=== PATIENT | male | born 1995 | race Caucasian/White ===

== ENCOUNTER 2018-05-30 10:18 | Inpatient (IN) | payer OTHER ==
[~2018-05-30] VITALS: Ht 180.3 cm; Wt 72.1 kg
[2018-05-30 10:42] VITALS: Ht 180.3 cm; Wt 72.1 kg
[2018-05-30 11:05] LABS: CARBON DIOXIDE 23.8 mmol/L (21-32); CHLORIDE SERUM 103 mmol/L (98-107); CREATININE SERUM 1.4 mg/dL (0.7-1.3); GFR1 > 60 mL/min; GLUCOSE SERUM 93 mg/dL (74-106); POTASSIUM SERUM 3.2 mmol/L (3.5-5.1); SODIUM SERUM 138 mmol/L (136-145)
[2018-05-30 11:10] LABS: ALKALINE PHOSPHATASE 80 U/L (46-116); ALT/SGPT 13 U/L (16-63); AST/SGOT 6 U/L (15-37); BILIRUBIN TOTAL 0.1 mg/dL (0.20-1.00); LACTIC DEHYDROGENASE (LDH) 123 U/L (100-190); TOTAL PROTEIN, SERUM 8.2 g/dL (6.4-8.2)
[2018-05-30 11:13] LABS: ALBUMIN 3.1 g/dL (3.4-5.0)
[2018-05-30 11:14] LABS: IRON 22 ug/dL (65-170); TOTAL IRON BINDING CAPACITY 185 ug/dL (250-450)
[2018-05-30 11:24] LABS: BASOPHIL % 0.5 % (0-2); RED BLOOD CELLS 2.52 M/mm3 (4.52-5.90); RED CELL DISTRIBUTION WIDTH 14.5 % (11.5-14.5)
--- NOTE | 2018-05-30 11:31 | NUR ---
PT BROUGHT TO ED VIA AMBULANCE TRANSPORT FROM [facility] FOR ABNORMAL LABS. PER REPORT PT HAS HGB 6.9/HCT 23 READING FROM BLOOD DRAW DONE YESTERDAY AND HAS HAS RECENT HX OF MDR UTI. 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 PT REPORTS INTERMITTENT DIZZINESS X3 DAYS AND "NOT FEELING RIGHT." PT ARRIVED TO ED AA/O X4, REPORTS CHRONIC NECK PAIN D/T INJURY, NO NEW PAIN, RESPS EVEN AND UNLABORED, CAPPED OFF TRACH IN PLACE, PER PT WAS GOING TO BE REMOVED "BUT I GOT SICK AND MY SATS WERE GOING DOWN SO THEY KEPT IT JUST IN CASE," SKIN PALE, WARM/DRY, INTACT, ABLE TO MOVE BILATERAL ARMS, NO ACUTE DISTRESS NOTED. 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
--- NOTE | 2018-05-30 11:35 | NUR ---
PT ALSO REPORTS INTERMITTENT FEVER X1 WEEK.
--- NOTE | 2018-05-30 11:53 | NUR ---
PT REPORTS HE DOES NOT WAS BLOOD TRANSUSION UNLESS BLOOD IS FROM A FAMILY MEMBER D/T HIS PERSONAL PREFERENCE.
[2018-05-30 12:42] LABS: PLATELET COUNT 577 x10^3mcL (130-400)
--- NOTE | 2018-05-30 12:52 | NUR ---
PT SITTING UP IN ED GURNEY IN POSITION OF COMFORT, A/O X4, ON CELL PHONE, RESPS EVEN AND UNLABORED, SKIN WARM/DRY TO TOUCH, NO DISTRESS NOTED.
[2018-05-30 12:53] LABS: UA SPECIFIC GRAVITY <=1.005 (1.005-1.035); microscopic required? YES; urine erythrocyte TRACE (NEGATIVE)
--- NOTE | 2018-05-30 13:05 | NUR ---
AT BEDSIDE DISCUSSING PLAN OF CARE.
[2018-05-30] MEDS ORDERED: VITAMIN C500 MG/5 M GT (14:23)
[2018-05-30] MEDS ORDERED: PHEL GT (14:23)
[2018-05-30] MEDS ORDERED: MELATONIN5 MG/15 ML GT (14:24)
[2018-05-30] MEDS ORDERED: LOV40I SQ (14:24)
[2018-05-30] MEDS ORDERED: FLOMAX0.4 MG PO (14:25)
[2018-05-30] MEDS ORDERED: PEPCID20 MG GT (14:25)
[2018-05-30] MEDS ORDERED: ROBAXIN500 MG GT (14:25)
[2018-05-30] MEDS ORDERED: NOR10T GT (14:26)
[2018-05-30] MEDS ORDERED: [UNRECOGNIZED DRUG - OTHER] PO (14:27)
[2018-05-30] MEDS ORDERED: MIRALAX17 GM GT (14:27)
[2018-05-30] MEDS ORDERED: MOT600 GT (14:27)
[2018-05-30] MEDS ORDERED: GABAPENTIN600 M1 PO (14:28)
[2018-05-30] MEDS ORDERED: CRANBERRY450 M2 PO (14:28)
[2018-05-30] MEDS ORDERED: MIDODRINE HCL2.5 M1 PO (14:29)
[2018-05-30] MEDS ORDERED: XANAX0.25 MG PO (14:30)
[2018-05-30] MEDS ORDERED: ACIDOPHILUS1 EAC1 GT (14:31)
[2018-05-30] MEDS ORDERED: ZOFRAN ODT4 MG SL (14:31)
[2018-05-30] MEDS ORDERED: [UNRECOGNIZED DRUG - OTHER] GT (14:32)
[2018-05-30] MEDS ORDERED: HYDROCORTIZONE (14:33)
[2018-05-30] MEDS ORDERED: BENADRYL ALLERG25 M1 PO (14:33)
[2018-05-30] MEDS ORDERED: MULTI-VITAMINS1 TAB PO (14:33)
[2018-05-30] MEDS ORDERED: DOCUSATE SODIUM PO (14:34)
[2018-05-30] MEDS ORDERED: TYLENOL325 M1 PO (14:37)
[2018-05-30] MEDS ORDERED: BACTRIM DS1 TAB PO (14:38)
[2018-05-30] MEDS ORDERED: XANAX0.5 MG PO (14:39)
[2018-05-30] MEDS ORDERED: MIN2 PO (14:40)
[2018-05-30] MEDS ORDERED: FERROUS SULFAT325 M2 PO (14:40)
[2018-05-30] MEDS ORDERED: ROBL (14:41)
[2018-05-30] MEDS ORDERED: PROA PO (14:43)
--- NOTE | 2018-05-30 14:49 | NUR ---
MED REC COMPLETED USING PAPERS SENT FROM [facility].
--- NOTE | 2018-05-30 14:49 | NUR ---
REPORT CALLED TO DILSHAD ALTAMIRANO. PT TO BE ADMITTED TO TO B. PT IN NO DISTRESS.
--- NOTE | 2018-05-30 15:15 | NUR ---
RECEIVED PATIENT A/A/OX4; PARAPLEGIC; ABLE TO MOVE BUE; BUT WEAKNESS. BREATHING SOUND DIMINISHED VIGNESH W/ RHONCHI. O2 SAT 97% ON 2L VIA N/C. DENIED CHEST PAIN. NO TELE; P = 99. TRACHEOSTOMY CAPPED. URINE INTACT. URINE INCONT. IVF OF NS 70CC/HR INFUSING WELL TO RAC. TRACHE SUCTION PRN; MOD WHITE SPUTUM BY SUCTION NOTED. ON AIR MATTRESS. SKIN INTACT. NO S/S OF PAIN NOTED. CALL LIGHT IN REACH. PATIENT PALE. STATED HAD BLACK STOOL BM IN SNF. ANXIETY AT TIMES. BUT CLAM AND CO-OP NOW. CONTACT ISOLATION FOR MDRO (+) URINE CULTURE. CALL LIGHT IN REACH
[2018-05-30 15:40] VITALS: BP 127/85
[2018-05-30 15:59] VITALS: BP 111/57
--- NOTE | 2018-05-30 18:38 | NUR ---
C/O ANXIETY. ORDER OF XANAX 1MG PO GIVEN. CONTINUE MONITOR
--- NOTE | 2018-05-30 18:58 | NUR ---
C/O BRETHING DIFFICULTY. O2 SAT 87% ON 2L VIA N/C. RT PAGED FOR TRACHE SUCTION. V/S = [id number]/85; BREATHING IMPROVED AFTER SUCTION.
--- NOTE | 2018-05-30 19:57 | NUR ---
PT ALERT AND ORIENTED. APPEAR TO BE CALM AT THE MOST. BREATHING EVEN AND WITHOUT DIFFICULTY. LUNGS ARE CLEAR AND DIMINISED. TRACH IN PLACE WITHOUT, CLEAN, PRESENTLY WITHOUT SECRETIONS. PT EDUCATED TO CALLED RN IMMEDIATELY IF ANY RESPIRATORY DISTESS OR NEED ANY SUCTIONING. BOTH RT AND LT AV IV INTACH. NS INFUSION @ 70 CC/HR. PT HAS WEAKNESS IN UPPER BILATERAL ARMS AND VIGNESH. LEGS ARE FLACCID. PT STATES THAT HE HAS NOT HAD BLACK STOOLS TODAY. BED IN LOW POSITION. CALL LIGHT IN REACH WILL CONT TO MONITOR.
[2018-05-30 21:22] VITALS: BP 121/75
--- NOTE | 2018-05-30 23:14 | NUR ---
PT C/O OF 8/10 NECK PAIN. NORCO GIVEN PRN.
[2018-05-31 05:54] VITALS: BP 120/77
--- NOTE | 2018-05-31 05:57 | NUR ---
PT ALERT AND ORIENTED. NO SHORTNESS OF BREATH. STATES THAT HE WAS ABLE TO SLEEP FOR A FEW HOURS OVER NIGHT. PT REFUSED TO TURN AND PT UNDERSTANDS THAT TURNING IS TO PREVENT BED SORES. TRACH IS CAPPED AND WITH OUT ANY COMPLICATIONS OVER. BREATHING IS REGULAR WITH OUT AND DIFFICULTY. NO SIGNIFICANT CHANGES OVER NIGHT. WILL ENDORSE TO DAY RN.
[2018-05-31 06:29] LABS: BASOPHIL % 0.5 % (0-2); RED CELL DISTRIBUTION WIDTH 14.5 % (11.5-14.5)
[2018-05-31 06:52] LABS: CALCIUM 9.3 mg/dL (8.5-10.1); CARBON DIOXIDE 24.2 mmol/L (21-32); CHLORIDE SERUM 110 mmol/L (98-107); CREATININE SERUM 1.2 mg/dL (0.7-1.3); GFR1 > 60 mL/min; GLUCOSE SERUM 100 mg/dL (74-106); MAGNESIUM 1.7 mg/dL (1.8-2.4); POTASSIUM SERUM 3.5 mmol/L (3.5-5.1); SODIUM SERUM 145 mmol/L (136-145)
--- NOTE | 2018-05-31 07:10 | NUR ---
SEEN IN BED ASLEEP, BREATHING E/U ON ROOM AIR, TRACH NOTED CAPPED. ON AIR MATTRESS. IVF NS AT 70ML/HR INFUSING WELL TO RAC IV SITE. MOTHER AT BEDSIDE. CONTACT ISOLATION CONTINUED.
[2018-05-31 07:17] LABS: PLATELET COUNT 499 x10^3mcL (130-400)
[2018-05-31 08:10] VITALS: BP 119/80
--- NOTE | 2018-05-31 08:30 | NUR ---
AAOX4. BREATHING EASY ON ROOM AIR. TRACH NOTED CAPPED, DRY NO SECRETIONS. ABLE TO MOVE HIS ARMS UP ABOVE SHOUDER, WIGGLE SOME OF HIS FINGERS. BREAKFAST FED BY HIS MOTHER AT BEDSIDE, NO ASPIRATION NOTED. INCONTINENCE URINE. PATIENT ABLE TO WIGGLE SOME OF HIS LEFT TOES, NO MOVEMENT TO RLE. ON AIR MATRESS. IVF NS TO RAC AT 70ML/HR INFUSING WELL. CONTACT ISOLATION MAINTAINED.
--- NOTE | 2018-05-31 09:51 | NUR ---
NORCO 1 TAB PO GIVEN FOR NECK PAIN, WILL CONTINUE TO MONITOR.
--- NOTE | 2018-05-31 11:04 | NUR ---
NOTED NEW ORDER FOR PRBC TRANSFUSION. PATIENT AND HIS MOTHER AT BEDSIDE STATED THAT THEY WOULD LIKE TO SPEAK TO DOCTOR, PATIENT STATED HE PREFER TO RECEIVED BLODD TRANFUSION ONLY FROM HIS FAMILY MEMBERS. COUNTY SURVEYOR-DESIRE INFORMED.
--- NOTE | 2018-05-31 12:15 | NUR ---
INCONTINENCE URINE NOTED SOAKED URINE TO ABSORBANT PADS. PERICARE PROVIDED. NEW PADS/LINENS CHANGED. REPOSITION. NOTED SOME SPASM TO BLE. REFUSED SCD. ON HEPARIN SQ PROPHYLAXIS. AIR MATTRESS. CONTACT ISOLATION MAINTAINED.
--- NOTE | 2018-05-31 12:30 | NUR ---
LILLY AT BEDSIDE DISCUSSED WITH PATIENT AND HIS MOTHER REGUARDING BLOOD TRANSFUSION AND PLAN OF CARE.
--- NOTE | 2018-05-31 13:30 | NUR ---
STILL REFUSED BLOOD TRANSFUSION AFTER DISCUSSED WITH LILLY. CONSENT OF REFUSAL OF BLOOD TRANSFUSION SIGNED BY PATIENT'S MOTHER (PATIENT IS DISABLED, UABLE TO SIGN).
--- NOTE | 2018-05-31 13:31 | NUR ---
SCHEDULED MEDS GIVEN. NOTED FINISHED 50% OF BURGER. DENIES NAUSEA.
[2018-05-31 15:57] VITALS: BP 134/84
--- NOTE | 2018-05-31 16:35 | NUR ---
RESTING WITH EYES CLOSED. B12 IM GIVEN TO RT UPPER ARM. DUE LEVAQUIN IVPB INFUSING, IV INTACT AND PATENT. MOTHER AT BEDSIDE.
--- NOTE | 2018-05-31 18:04 | NUR ---
NO ANY DISTRESS THROUGHOUT SHIFT. NORCO GIVEN X1, ROBAXIN X1 FOR NECK PAIN WITH GOOD RELIEF. PLEASANT. ALL SCHEDULED MEDS GIVEN. NO SKIN BREAKDOWN, PERIANAL AREA CLEANED, REPOSITIONED. MOTHER AT BEDSIDE AT ALL TIME, VERY SUPPORTIVE. IVF NS AT 50ML/HR INFUSING WELL.
[2018-05-31 20:08] VITALS: BP 128/78
--- NOTE | 2018-05-31 20:30 | NUR ---
PATIENT RECEIVED IN BED IN SITTING POSITION DURING BEDSIDE HANDS OFF AWAKE,ALERT AND ORIENTED. NO RESP. DISTRESS, ON TRACH COLLAR WITH RED BOTTOM, MAMIE #[id number], TRACH CAPPED.PATIENT INFORMED TO CALL NURSE IF SUCTIONING IS NEEDED. NON TELE, HR=78BPM. PATIENT CAN COMMUNICATE NEEDS. DENIED PAIN THIS TIME. PATIENT AND MOTHER INFORMED ABOUT POC THIS SHIFT.SAFETY/FALL PRECAUTIONS MAINTAINED. WILL CONTINUE TO MONITOR.
--- NOTE | 2018-05-31 20:36 | NUR ---
DR. IVY AT BEDSIDE TO ASSESS Pt. Pt IS TRACHED WITH A SHILEY 8.0 CUFFLESS AND CAPPED. NO RESP DISTRESS NOTED ON RA. Pt STATES HE IS ABLE TO EXPECTORATE ON HIS OWN. NOTIFIED TO CALL RT IF SUCTION IS NEEDED OR SOB IS PRESENT. PLAN IS TO DOWNSIZE TRACH TO A SHILEY 7.0 CUFFLESS AND KEEP IT CAPPED; PER DR. IVY. WILL CONTINUE TO MONITOR.
--- NOTE | 2018-05-31 21:23 | NUR ---
SCHEDULED MEDS ADMINISTERED ORALLY, PATIENT INFORMED ABOUT EACH MEDS ACTIONS AND PURPOSE PRIOR. PLACED IN A SITTING /UPRIGHT POSITION. TOOK PILSS WELL, NO DIFF SWALLOWING NOTED. PATIENT ALSO COMPLAINED OF GENERALIZED BODY PAIN RATED AT 6/10 MEDICATED PRN, MADE COMFORTABLE IN BED. REQUESTED FOR HIS SLEEPING MED, TRAZADONE GIVEN. PATIENT IS ALSO INCONTINENT OF UA THIS TIME, DIAPER SOAKED, CLEANED AND KEPT DRY. WILL CONTINUE TO MONITOR. EFFECTIVENESS OF MEDS.
--- NOTE | 2018-05-31 22:06 | NUR ---
CHECKED EFFECTIVENESS OF PAIN MEDS GIVEN, PATIENT STATED PAIN IS CONSTANTLY THERE BUT IS LESS. PATIENT IS COMFORTABLE.
--- NOTE | 2018-05-31 22:46 | NUR ---
PATIENT INCONTINENT OF URINE, CLEANED AND KEPT DRY. NO DISTRESS THIS TIME. WILL CONTINUE TO MONITOR.
--- NOTE | 2018-05-31 23:42 | NUR ---
PATIENT CALLED AND MOTHER CALLED STATING THAT REDNESS IN PATIENT'S FACE IS GETTING WORSE. WENT AND CHECKED PATIENT'S FACE REDNESS NOTED. NOTIFIED DR. BECERRIL OF FINDINGS. WILL COME AND SEE PATIENT. MD SEEN IN PATIENT'S ROOM.
--- NOTE | 2018-06-01 02:51 | NUR ---
PATIENT CHECKED THIS TIME, SLEEPING, EASILY AWAK,CHECKED DIAPER WAS SOAKED, CLEANED AND KEPT DRY. TURNED THIS TIME. NO COMPLAINTS MADE.
[2018-06-01 03:57] VITALS: BP 128/78
--- NOTE | 2018-06-01 05:20 | NUR ---
PATIENT COMPLAINED OF BACK AND NECK PAIN, MEDICATED PRN AND MADE COMFORTABLE IN BED. WILL MONITOR EFFECTIVENESS.
[2018-06-01 05:31] VITALS: BP 127/87
[2018-06-01 06:18] LABS: CALCIUM 9.5 mg/dL (8.5-10.1); CARBON DIOXIDE 26.4 mmol/L (21-32); CHLORIDE SERUM 108 mmol/L (98-107); CREATININE SERUM 1.3 mg/dL (0.7-1.3); GFR1 > 60 mL/min; GLUCOSE SERUM 95 mg/dL (74-106); MAGNESIUM 1.5 mg/dL (1.8-2.4); POTASSIUM SERUM 3.7 mmol/L (3.5-5.1); SODIUM SERUM 145 mmol/L (136-145)
--- NOTE | 2018-06-01 06:26 | NUR ---
PATIENT SLEPT OFF AND ON DURING THE SHIFT, WAS TURNED Q2HRS, INCONTINENT KEPT CLEANED AND DRY. NO RESP. DISTRESS. DENIED PAIN UPON URINATION.COMPLAINED OF PAIN AT IV SITE THIS TIME SITE WAS CHANGED. SAFETY/FALL PRECAUTIONS MAINTAINED. WILL ENDORSE CONTINUITY OF CARE TO INCOMING NURSE.
[2018-06-01 06:28] LABS: BASOPHIL % 0.5 % (0-2)
[2018-06-01 06:31] LABS: PLATELET COUNT 623 x10^3mcL (130-400)
--- NOTE | 2018-06-01 06:34 | NUR ---
LAB CALLED RE-HGB OF 7.0 AND HCT OF 21,PRIMARY RN INFORMED OF LAB RESULT THIS AM
--- NOTE | 2018-06-01 07:24 | NUR ---
BEDSIDE HANDS OFF PERFORMED WITH INCOMING NURSE LOGAN.
--- NOTE | 2018-06-01 07:30 | NUR ---
PT ENDORSE TO ME THIS MORNING. SITTING UP IN BED, AA/O X4 PARAPLEGIC. BREATHING EVEN AND UNLABORED ON RA, LUNGS CLEAR/ DIM AT BASES. TRACH INPLACE/ COMMUNICATES WELL. PT WILL VERBALIZE WHEN HE NEEDS SUCTIONING/ ON RT PROTOCAL. MEDSURG, DENIES ANY CP OR PRESSURE. PULSES PRESENT NO EDEMA NOTED, BED BOUND ON HEP SQ./ AIR MATTRESS. INCONTINENT. BOWEL SOUNDS ACTIVE IN ALL FOUR QUADS. SKIN WARM TO TOUCH AND INTACT. IV TO HE RFA INFUSING AT 70 ML/HR, NO REDNESS OR SWELLING NOTED. CALL LIGHT IN REACH .BED IN LOW POSITION. WILL CONTINUE PLAN OF CARE.
[2018-06-01 10:09] VITALS: BP 140/84
--- NOTE | 2018-06-01 11:15 | NUR ---
PT LAYING IN BED RESTING WITH EYES CLOSE, BREATHING EVEN AND UNLABORED ON RA. NO SIGN OF DISTRESS OR SOB. FAMILY AT BEDSIDE. PT TOLERATED 85% OF BREAKFAST. WILL CONTINUE TO MONITOR.
--- NOTE | 2018-06-01 14:25 | NUR ---
PT C/O OF GEN BACK AND SPINE PAIN 10/23, MEDICATED PER EMAR. FAMILY AT BEDSIDE. WILL CONTINUE PLAN OF CARE.
[2018-06-01 17:21] VITALS: BP 119/76
--- NOTE | 2018-06-01 18:41 | NUR ---
PT ASKING FOR PAIN MED FOR DUE TO PRESSURE AND DISCOMFORT TO UPPER BACK, MEDICATED PER EMAR. MOTHER AT BEDSIDE. WILL CONTINUE PLAN OF CARE.
--- NOTE | 2018-06-01 18:51 | NUR ---
NO ACUTE CHANGES AT THIS TIME. NO ACUTE RESP DISTRESS OR SOB NOTED. REMAINS ON RA/ SATING AT 98% RT PROTOCAL NEEDED FOR SUCTION THROUH TRACH CAPPED # 8. DENIES ANY ANY PAIN OR DISCOMFORT AT THIS TIME, MEDICATED PER EMAR. WILL ENDORSE TO INCOMING RN.
--- NOTE | 2018-06-01 19:47 | NUR ---
COMPLAINED OF FEELING NAUSEOUS AND ANXIOUS, MEDICATED PRN. WILL CHECK EFFECTIVENESS.
[2018-06-01 19:59] VITALS: BP 130/87
--- NOTE | 2018-06-01 20:06 | NUR ---
PATIENT RECEIVED IN BED AWAKE,ALERT AND ORIENTED X4, SPEECH CLEAR, NO RESP. DISTRESS BREATHING EVEN AND UNLABORED BS CLEAR UPPER LOBES AND DIMINISHED BASES, FOUND ON ROOM AIR SAT 97%, SHILEY #8 CAPLESS TRACH WITH COLLAR, PATIENT ABLE TO CALL IF SUCTIONING NEEDED, RT PROTOCOL. NON TELE MED/SURG PATIENT=88BPM. PATIENT INCONTINENT OF UA, CLEANED AND KEPT DRY, POSITIONED TO BACK WITH HOB ELEVATED, PATIENT PREFERS TO BE SUPINE AT THIS TIME, INFORMED ABOUT TURNING REGIMEN TO PREVENT PRESSURE SORES S/S IMMOBILITY D/T PARAPLEGIA. CALL LIGHT ON REACH. DULL BACK AND NECK PAIN THIS TIME AT 3/10, INFORMED ABOUT PAIN MANAGEMENT. INFORMED ABOUT POC THIS SHIFT. SAFETY/FALL PRECAUTION MAINTAINED. WILL CONTINUE TO MONITOR.
[2018-06-01 20:59] VITALS: BP 130/87
--- NOTE | 2018-06-01 21:29 | NUR ---
GAVE PATIENT MEDICATIONS. PROVIDED EDUCATION. PATIENT TOLERATED WELL.
--- NOTE | 2018-06-01 23:33 | NUR ---
CHECKED RESULT OF PAIN MEDS PATIENT CLAIMED PAIN IS SUBSIDING. FEELS COMFORTABLE.
--- NOTE | 2018-06-02 05:24 | NUR ---
COMPLAINED OF NEDCK AND BACK PAIN, RATED AT 7/10 MEDICTED AND MADE COMFORTABLE IN BED. WILL CHECK EFFECTIVENESS.
[2018-06-02 05:32] VITALS: BP 103/57
--- NOTE | 2018-06-02 06:31 | NUR ---
PATIENT SLEPT WELL AND RESTED GOOD DURING THE SHIFT. WAS INCONTINENT X4, CLEANED AND KEPT DRY. NO RESP. DISTRESS, BREATHING EVEN AND UNLABORED, DIDNT REQUIRE SUCTIONING DURING THE SHIFT. IV SITE NO SIGN OF INFILTRATION. WAS MEDICATED X2 FOR COMPLAINT OF NECK AND UPPER BACK PAIN. RECEIVED RELIEF. SAFETY/FALL/ CONTACT ISOLATION PREC OBSERVED AND MAINTAINED. WILL ENDORSE CONTINUITY OF CARE TO INCOMING NURSE.
[2018-06-02 07:08] LABS: CARBON DIOXIDE 24.8 mmol/L (21-32); CHLORIDE SERUM 108 mmol/L (98-107); CREATININE SERUM 1.1 mg/dL (0.7-1.3); GFR1 > 60 mL/min; GLUCOSE SERUM 97 mg/dL (74-106); MAGNESIUM 1.5 mg/dL (1.8-2.4); POTASSIUM SERUM 3.7 mmol/L (3.5-5.1); SODIUM SERUM 143 mmol/L (136-145)
[2018-06-02 07:09] LABS: BASOPHIL % 0.6 % (0-2)
--- NOTE | 2018-06-02 08:00 | NUR ---
A/A/OX4; CLEAR SPEECH. PARAPLEGIC. ABLE TO MOVE, BUT WEAK ON BUE. TRACHE SHILEY 8.[address] BREATHING SOUND CLEAR VIGNESH. O2 SAT 97% ON RA. IVF OF NS 70CC/HR INFUSING WELL TO RFA. IV SITE CLEAN. URINE INCONT. SKIN PALE, WARM AND INTACT. BED BOUND. ON AIR MATTRESS. CONTACT ISOLATION FOR MDRO (+). NO C/O PAIN NOW. MOTHER AT BED SIDE. PT EVAL AND TREATMENT. CALL LIGHT IN REACH.
[2018-06-02 08:30] LABS: RED CELL DISTRIBUTION WIDTH 14.9 % (11.5-14.5)
[2018-06-02 08:31] LABS: PLATELET COUNT 613 x10^3mcL (130-400)
[2018-06-02 09:21] VITALS: BP 108/60
--- NOTE | 2018-06-02 09:55 | NUR ---
JULIO ANTIQUE FURNITURE REPAIRER AWARE OF PATIENT'S MAG LEVEL. NEW ORDER OF MAG RIDER 4GM IV STARTED.
[2018-06-02] MEDS ORDERED: FERROUS SULFAT325 M2 (11:31)
[2018-06-02] MEDS ORDERED: VITB12I IM (11:32)
[2018-06-02 13:03] VITALS: BP 108/60
--- NOTE | 2018-06-02 17:52 | NUR ---
REPORT GIVEN TO VINNY AT [facility]. ALL QUESTIONS ANSWERED. ATTENDING NURSE RUPA MADE AWARE.
[2018-06-02 17:57] VITALS: BP 118/82
--- NOTE | 2018-06-02 18:18 | NUR ---
D/C TO [facility]IA [facility]. IV D/C'D. NORCO 5/325 PO GIVEN 25 MINS AGO. TRACHE INTACT. NECK COLLAR APPLIED BY RT. CONDITION STABLE.
== END 2018-06-02 18:56 | disposition home or self-care (01) | DRG 463 ==
LOC: ED 10:18 → MU 13:39
PROVIDERS: Emergency Medicine; Family Medicine; ADMIT Internal Medicine
DX: N39.0 Urinary tract infection, site not specified (principal); J96.11 Chronic respiratory failure with hypoxia; G82.20 Paraplegia, unspecified; Z93.0 Tracheostomy status; Z93.1 Gastrostomy status; D53.9 Nutritional anemia, unspecified; T14.8XXS Other injury of unspecified body region, sequela; B96.89 Other specified bacterial agents as the cause of diseases classified elsewhere; E87.6 Hypokalemia; E86.0 Dehydration; Z16.24 Resistance to multiple antibiotics; Z79.891 Long term (current) use of opiate analgesic; Z79.1 Long term (current) use of non-steroidal anti-inflammatories (NSAID); Z53.1 Procedure and treatment not carried out because of patient's decision for reasons of belief and group pressure
CPT/HCPCS: 36600; 87804; 97110-GP; 97112-GP; 97530-GP; J0696; J1644; J1956; J3420; J3475; J7030; Q0162

== ENCOUNTER 2018-06-06 15:29 | Inpatient (IN) | payer OTHER ==
[~2018-06-06] VITALS: Ht 182.9 cm; Wt 77.6 kg
[~2018-06-06 15:29] MED LIST: ACIDOPHILUS1 EAC1 GT; BACTRIM DS1 TAB PO; BENADRYL ALLERG25 M1 PO; CRANBERRY450 M2 PO; DOCUSATE SODIUM PO; FERROUS SULFAT325 M2; FERROUS SULFAT325 M2 PO; FLOMAX0.4 MG PO; GABAPENTIN600 M1 PO; HYDROCORTIZONE; LOV40I SQ; MELATONIN5 MG/15 ML GT; MIDODRINE HCL2.5 M1 PO; MIN2 PO; MIRALAX17 GM GT; MOT600 GT; MULTI-VITAMINS1 TAB PO; NOR10T GT; PEPCID20 MG GT; PHEL GT; PROA PO; ROBAXIN500 MG GT; ROBL; TYLENOL325 M1 PO; VITAMIN C500 MG/5 M GT; VITB12I IM; XANAX0.25 MG PO; XANAX0.5 MG PO; ZOFRAN ODT4 MG SL; [UNRECOGNIZED DRUG - OTHER] GT; [UNRECOGNIZED DRUG - OTHER] PO
[2018-06-06 15:34] VITALS: Ht 182.9 cm; Wt 77.6 kg
[2018-06-06 16:40] LABS: BASOPHIL % 0.5 % (0-2)
[2018-06-06 16:48] LABS: CALCIUM 10.3 mg/dL (8.5-10.1); CARBON DIOXIDE 29.4 mmol/L (21-32); CREATININE SERUM 1.6 mg/dL (0.7-1.3); POTASSIUM SERUM 3.8 mmol/L (3.5-5.1)
[2018-06-06 16:51] LABS: PLATELET COUNT 771 x10^3mcL (130-400)
[2018-06-06 16:53] LABS: ALBUMIN 3.8 g/dL (3.4-5.0); BILIRUBIN TOTAL 0.15 mg/dL (0.20-1.00); TOTAL PROTEIN, SERUM 8.5 g/dL (6.4-8.2)
[2018-06-06 17:45] LABS: microscopic required? NO
[2018-06-06 17:55] LABS: urine erythrocyte NEGATIVE (NEGATIVE)
[2018-06-06 20:53] VITALS: BP 107/53
[2018-06-06 23:04] VITALS: BP 127/72
[2018-06-07 00:45] VITALS: BP 127/72
[2018-06-07 05:57] VITALS: BP 99/48
[2018-06-07 06:11] LABS: BASOPHIL % 0.4 % (0-2)
[2018-06-07 06:27] LABS: CALCIUM 9.5 mg/dL (8.5-10.1); CARBON DIOXIDE 26.8 mmol/L (21-32); CHLORIDE SERUM 105 mmol/L (98-107); CREATININE SERUM 1.4 mg/dL (0.7-1.3); GFR1 > 60 mL/min; GLUCOSE SERUM 93 mg/dL (74-106); POTASSIUM SERUM 3.9 mmol/L (3.5-5.1); SODIUM SERUM 140 mmol/L (136-145)
[2018-06-07 06:49] LABS: PLATELET COUNT 620 x10^3mcL (130-400); RED CELL DISTRIBUTION WIDTH 15.8 % (11.5-14.5)
[2018-06-07 08:57] VITALS: BP 99/53
[2018-06-07 17:18] VITALS: BP 99/45
[2018-06-07 20:56] VITALS: BP 120/62
[2018-06-08 05:55] VITALS: BP 102/73
[2018-06-08 06:30] LABS: CALCIUM 9.3 mg/dL (8.5-10.1); CARBON DIOXIDE 25.9 mmol/L (21-32); CHLORIDE SERUM 106 mmol/L (98-107); CREATININE SERUM 1.2 mg/dL (0.7-1.3); GFR1 > 60 mL/min; GLUCOSE SERUM 83 mg/dL (74-106); POTASSIUM SERUM 3.6 mmol/L (3.5-5.1); SODIUM SERUM 142 mmol/L (136-145)
[2018-06-08 06:39] LABS: BASOPHIL % 0.6 % (0-2)
[2018-06-08 06:40] LABS: PLATELET COUNT 540 x10^3mcL (130-400); RED CELL DISTRIBUTION WIDTH 15.8 % (11.5-14.5)
[2018-06-08 09:24] VITALS: BP 114/67
[2018-06-08 17:25] VITALS: BP 118/70
[2018-06-08 20:56] VITALS: BP 113/65
[2018-06-09 05:22] VITALS: BP 101/60
[2018-06-09 09:02] VITALS: BP 121/75
[2018-06-09 21:03] VITALS: BP 106/63
[2018-06-10 05:30] VITALS: BP 96/57
[2018-06-10 08:34] VITALS: BP 109/63
[2018-06-10 16:38] VITALS: BP 104/56
[2018-06-10 19:43] VITALS: BP 120/81
[2018-06-11 05:48] VITALS: BP 134/89
[2018-06-11 16:58] VITALS: BP 117/74
[2018-06-11 20:32] VITALS: BP 132/73
[2018-06-12 05:28] VITALS: BP 114/69
[2018-06-12 06:37] LABS: CALCIUM 10.5 mg/dL (8.5-10.1); CARBON DIOXIDE 27.4 mmol/L (21-32); CREATININE SERUM 2.3 mg/dL (0.7-1.3)
[2018-06-12 06:52] LABS: POTASSIUM SERUM 2.9 mmol/L (3.5-5.1)
[2018-06-12 06:57] LABS: BASOPHIL % 0.4 % (0-2)
[2018-06-12 07:00] LABS: PLATELET COUNT 418 x10^3mcL (130-400); RED CELL DISTRIBUTION WIDTH 14.6 % (11.5-14.5)
[2018-06-12 08:56] VITALS: BP 135/84
[2018-06-12 17:00] VITALS: BP 108/47
[2018-06-12 21:08] VITALS: BP 99/47
[2018-06-13 02:56] VITALS: BP 111/62
[2018-06-13 05:42] VITALS: BP 118/73
[2018-06-13 06:50] LABS: BASOPHIL % 0.5 % (0-2); RED CELL DISTRIBUTION WIDTH 14.5 % (11.5-14.5)
[2018-06-13 06:54] LABS: PLATELET COUNT 418 x10^3mcL (130-400)
[2018-06-13 07:17] LABS: CALCIUM 11.4 mg/dL (8.5-10.1); CARBON DIOXIDE 27.5 mmol/L (21-32); CREATININE SERUM 2.4 mg/dL (0.7-1.3); POTASSIUM SERUM 3.1 mmol/L (3.5-5.1)
[2018-06-13 09:20] VITALS: BP 110/64
[2018-06-13 12:50] LABS: UA SPECIFIC GRAVITY 1.015 (1.005-1.035); microscopic required? YES
[2018-06-13 12:51] LABS: urine erythrocyte 3+ (NEGATIVE)
[2018-06-13 16:51] VITALS: BP 113/66
[2018-06-13 21:06] VITALS: BP 123/68
[2018-06-14 04:47] VITALS: BP 128/68
[2018-06-14 05:00] VITALS: BP 111/46
[2018-06-14 06:28] LABS: BASOPHIL % 0.5 % (0-2); CALCIUM 10.7 mg/dL (8.5-10.1); CARBON DIOXIDE 28.6 mmol/L (21-32); CREATININE SERUM 2.5 mg/dL (0.7-1.3); PLATELET COUNT 387 x10^3mcL (130-400); POTASSIUM SERUM 3.1 mmol/L (3.5-5.1)
[2018-06-14 09:36] LABS: RED CELL DISTRIBUTION WIDTH 15.6 % (11.5-14.5)
[2018-06-14 10:22] VITALS: BP 135/76
[2018-06-14 10:36] VITALS: BP 102/38
[2018-06-14 16:46] VITALS: BP 104/637
[2018-06-14 20:51] VITALS: BP 141/83
[2018-06-15 04:51] VITALS: BP 100/62
[2018-06-15 08:38] VITALS: BP 113/69
[2018-06-15 12:51] LABS: BASOPHIL % 0.4 % (0-2); PLATELET COUNT 336 x10^3mcL (130-400); RED CELL DISTRIBUTION WIDTH 15.6 % (11.5-14.5)
[2018-06-15 13:56] LABS: CALCIUM 10.7 mg/dL (8.5-10.1); CARBON DIOXIDE 27.9 mmol/L (21-32); CREATININE SERUM 2.7 mg/dL (0.7-1.3); POTASSIUM SERUM 3.8 mmol/L (3.5-5.1)
[2018-06-15 16:31] VITALS: BP 107/66
[2018-06-15 19:43] VITALS: BP 107/66
== END 2018-06-15 20:55 | disposition short-term general hospital (02) | DRG 463 ==
LOC: ED 15:29 → MU 19:42 → EDBEDREQ 19:43 → MU 20:15
PROVIDERS: Emergency Medicine; ADMIT Internal Medicine
DX: N39.0 Urinary tract infection, site not specified (principal); N17.0 Acute kidney failure with tubular necrosis; I95.89 Other hypotension; J96.10 Chronic respiratory failure, unspecified whether with hypoxia or hypercapnia; G82.21 Paraplegia, complete; I95.9 Hypotension, unspecified; Z93.0 Tracheostomy status; E83.42 Hypomagnesemia; N17.9 Acute kidney failure, unspecified; E86.0 Dehydration; T14.8XXS Other injury of unspecified body region, sequela; V49.9XXS Car occupant (driver) (passenger) injured in unspecified traffic accident, sequela
CPT/HCPCS: 76770; 94150; 97110-GP; 97530-GP; J0770; J1650; J2060; J2270; J3420; J7030; Q0092; Q0163; Q0169